=== PATIENT | female | born 1995 | race Caucasian/White ===

== ENCOUNTER 2018-04-30 03:45 | Emergency (ER) | payer SELFPAY ==
[~2018-04-30] VITALS: Ht 157.5 cm; Wt 99.8 kg
[~2018-04-30 03:45] MED LIST: PEPTO BISMOL
[2018-04-30 03:54] VITALS: BP 128/90
--- NOTE | 2018-04-30 03:54 | NUR ---
TO BED # 2 AMBULATORY ,REPORT GIVEN TO MAXIMO PEREZ
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
[2018-04-30 03:56] VITALS: BP 128/90
--- NOTE | 2018-04-30 04:45 | NUR ---
PATIENT LEFT WITHOUT BEING SEEN BY DR. BELTRAN. NO FURTHER CARE PROVIDED FOR PATIENT.
== END 2018-04-30 04:45 | disposition left against medical advice (07) ==
LOC: MED 03:45
DX: F41.9 Anxiety disorder, unspecified (principal); Z53.21 Procedure and treatment not carried out due to patient leaving prior to being seen by health care provider

== ENCOUNTER 2019-01-03 18:20 | Emergency (ER) | payer OTHER ==
[~2019-01-03] VITALS: Ht 165.1 cm; Wt 76.7 kg
[2019-01-03 18:28] VITALS: BP 114/76
--- NOTE | 2019-01-03 18:46 | NUR ---
26 Y FEMALE BIB FRIEND C/O RT FOOT PAIN X1 WEEK. PT DENIES TRAUMA. PT REPORTS NON-RADIATING CONSTANT DULL PAIN AT 5/10 THAT INCREASES WITH WALKING. NO SWELLING, REDNESS, BRUISING, OR DEFORMITY PRESENT. VSS AT THIS TIME. PT AA0X4. BED IS DOWN, LOCKED, BED RAIL X 1, ERMD TO SEE PT. MEDHX:DENIES RX:DENIES
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
--- NOTE | 2019-01-03 19:15 | NUR ---
REPORT RECEIVED FROM ANA MAHARAJ. ASSUMED CARE AT THIS TIME.
--- NOTE | 2019-01-03 19:18 | NUR ---
REPORT GIVEN TO JAMESON/ANA, TRANSFER OF CARE AT THIS TIME
[2019-01-03 20:39] VITALS: BP 114/76
== END 2019-01-03 20:39 | disposition home or self-care (01) ==
LOC: MED 18:20
DX: S93.601A Unspecified sprain of right foot, initial encounter (principal); Z79.899 Other long term (current) drug therapy; X58.XXXA Exposure to other specified factors, initial encounter; Y93.89 Activity, other specified; Y92.89 Other specified places as the place of occurrence of the external cause; Y99.8 Other external cause status
CPT/HCPCS: 73630; 99283; Q0092

== ENCOUNTER 2022-10-21 09:11 | Emergency (ER) | payer SELFPAY ==
[~2022-10-21] VITALS: Ht 165.1 cm; Wt 49.9 kg
[2022-10-21 09:28] VITALS: BP 120/78
--- NOTE | 2022-10-21 09:45 | NUR ---
HERE FOR TOOTHACHE, ALREADY SEEN BY
[2022-10-21] MEDS ORDERED: ACET-5629 PO (09:46)
[2022-10-21] MEDS ORDERED: oxyCODONE/APAP 5/325 MG 1 TAB TAB PO ONE (10:00)
[2022-10-21 10:20] VITALS: BP 117/78
--- NOTE | 2022-10-21 10:22 | NUR ---
WILL CONTACT DENTIST TODAY
--- NOTE | 2022-10-21 10:22 | NUR ---
Patient discharged with v/s stable. Written and verbal after care instructions given and explained. Patient verbalized understanding. Ambulatory with steady gait. All questions addressed prior to discharge. Advised to follow up with PMD.
== END 2022-10-21 10:22 | disposition home or self-care (01) ==
LOC: MED 09:11
DX: K08.89 Other specified disorders of teeth and supporting structures (principal); Z79.899 Other long term (current) drug therapy
CPT/HCPCS: 99283

== ENCOUNTER 2023-08-20 07:24 | Emergency (ER) | payer SELFPAY ==
[~2023-08-20] VITALS: Ht 167.6 cm; Wt 72.6 kg
[~2023-08-20 07:24] MED LIST changes: +ACET-5629 PO
[2023-08-20 08:02] VITALS: BP 114/72; PULSE 86; RESP 18; TEMP 98; O2SAT 98
[2023-08-20] MEDS ORDERED: LORA10TA19 PO (08:34)
[2023-08-20] MEDS ORDERED: FAMO-92 PO (08:34)
[2023-08-20 08:38] VITALS: BP 108/69; PULSE 83; RESP 18; TEMP 98; O2SAT 98
== END 2023-08-20 08:38 | disposition home or self-care (01) ==
LOC: MED 07:24
DX: L50.9 Urticaria, unspecified (principal); Z79.899 Other long term (current) drug therapy
CPT/HCPCS: 99283